=== PATIENT | male | born 1980 | race Caucasian/White ===

== ENCOUNTER 2023-11-02 13:47 | Outpatient (AMB) | payer OTHER, SELFPAY ==
[2023-11-02 13:50] VITALS: BP 130/86; PULSE 108; O2SAT 96; BMI 39.8
--- NOTE | 2023-11-02 13:50 | HO.NEPHOV_ITS ---
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 He is here for annual follow-up. Overall is doing very well. He has lost some weight. Blood pressure is better controlled. He has no new specific complaints today. Physical Exam Vital Signs: Last Vital Signs Pulse 108 H 11/02/23 13:50 BP 130/86 11/02/23 13:50 Pulse Ox 96 11/02/23 13:50 BMI result Body Mass Index 39.8 Const General: comfortable; No acute distress Orientation/consciousness: patient oriented x3 Eyes General: appearance normal, both eyes and all related structures Visual Mejía: normal visual mejía by confrontation Neck Neck: Yes supple and Yes no JVD Resp Effort & Inspection: normal respiratory effort and respiratory effort not decreased Auscultation: rhonchi Cardio Palpation: no palpable S3 and no palpable S4 Heart sounds: no rubs GI Inspection: Yes normal to inspection Palpation (GI): Soft to palpation Percussion: Yes normal to percussion Auscultation: normal bowel sounds General: Yes no CVA tenderness Back/Spine/Pelvis Back: no CVA tenderness Skin General skin exam: no petechiae and no purpura Neuro General: patient oriented x3 and no focal motor deficits Extrem General: No clubbing and No edema Results Reviewed Results Reviewed: Labs Nephrology Results: No Data to Display Assessment & Plan Assessment & Plan (1) HTN (hypertension): Code(s): I10 - Essential (primary) hypertension Category: Medical Plan 43-year-old man with a history of obesity and hypertension. Currently blood pressure is well controlled. We discussed importance of low-sodium diet. He should continue to lose some weight. I have not made any changes in his medications. As he loses weight we might be able to lower his antihypertensive medications. Encouraged him to avoid sugary drinks including mountain dew. Orders: Orders Basic Metabolic Panel 1 Year I10 - Essential (primary) hypertension Coding Level of Care Code Est Pt Level 3 (83993) Diagnoses HTN (hypertension) I10
== END 2023-11-02 14:00 | disposition home or self-care (01) ==
PROVIDERS: PCP Internal Medicine; Visit Provider Internal Medicine Hypertension Specialist
DX: I10 Essential (primary) hypertension (principal)
CPT/HCPCS: 99213

== ENCOUNTER → 2023-11-02 13:47 | Outpatient (BNVA) | payer OTHER, SELFPAY | PROVIDERS: PCP Internal Medicine; Visit Provider Internal Medicine Hypertension Specialist ==

== ENCOUNTER 2024-11-14 11:44 | Outpatient (AMB) | payer OTHER, SELFPAY ==
[2024-11-14 11:43] VITALS: BP 112/76; PULSE 106; O2SAT 96; BMI 36.4
--- NOTE | 2024-11-14 11:43 | HO.NEPHOV_ITS ---
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 Accompanied by: Self / Same As Patient Allergies cefuroxime (From Ceftin) Allergy (Unknown, Verified 11/14/24 11:46) Unknown doxycycline Allergy (Unknown, Verified 11/14/24 11:46) Unknown metoclopramide (From Reglan) Allergy (Unknown, Verified 11/14/24 11:46) Unknown Medication List - Last Reconciled 11/14/24 by Kale Turk MD albuterol sulfate 90 mcg/actuation 2 puffs inhalation Q6H amlodipine 10 mg PO DAILY ascorbic acid (vitamin C) ER 500 mg PO DAILY atorvastatin 10 mg PO DAILY cholecalciferol (vitamin D3) 125 mcg PO DAILY hydrochlorothiazide 25 mg PO QAM ipratropium bromide 18 mcg/actuation 2 puffs inhalation Q6H metformin 1,000 mg PO BID mometasone 100 mcg/actuation (Asmanex HFA) 2 puffs inhalation BID olmesartan 40 mg PO DAILY omeprazole 40 mg PO QAM semaglutide (Ozempic) mg subcut QWEEK zolpidem 10 mg PO BEDTIME PRN HPI Comments Details: Kel is a 43-year-old man with a history of obesity and hypertension. He is here for annual follow-up. Overall is doing very well. He has lost some weight. Blood pressure is better controlled. He has no new specific complaints today. 11/14/24 On ozempic Lost about 60 lbs so far Underwent ABPM 4 months ago and HCTZ 25 mg was added BP well controlled. Occasional lightheadedness when he bends down Physical Exam Vital Signs: BMI result Body Mass Index 36.4 Const General: comfortable; No acute distress Orientation/consciousness: patient oriented x3 Eyes General: appearance normal, both eyes and all related structures Visual Lanza: normal visual lanza by confrontation Neck Neck: Yes supple and Yes no JVD Resp Effort & Inspection: normal respiratory effort and respiratory effort not decreased Cardio Palpation: no palpable S3 and no palpable S4 Heart sounds: no rubs GI Inspection: Yes normal to inspection Palpation (GI): Soft to palpation Percussion: Yes normal to percussion Auscultation: normal bowel sounds General: Yes no CVA tenderness Back/Spine/Pelvis Back: no CVA tenderness Skin General skin exam: no petechiae and no purpura Neuro General: patient oriented x3 and no focal motor deficits Extrem General: No clubbing and No edema Assessment & Plan Assessment & Plan (1) HTN (hypertension): Code(s): I10 - Essential (primary) hypertension Category: Medical Plan 43-year-old man with a history of obesity and hypertension. Currently blood pressure is well controlled. We discussed importance of low-sodium diet. He should continue to lose some weight. I have not made any changes in his medications. As he loses weight we might be able to lower his antihypertensive medications. Encouraged him to avoid sugary drinks including mountain dew. 11/14/24 BP is well controlled with weight loss With ongoing weight loss, i except BP to drop further Would decrease HCTZ to 12.5 mg QD Watch BP at home and gradually taper antihypertensives Coding Level of Care Code Est Pt Level 4 (31669) Diagnoses HTN (hypertension) I10
--- OUTSIDE RECORDS SUMMARY | 2024-11-14 12:18 | XMS_ITS | Clinical Summary ---
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 Name Role Phone Jose Eduardo Lazo MD Primary Care Provider + [phone] Allergies Active Allergy Reactions Criticality Noted Date Comments Cefuroxime Other (see comments) 07/20/2021 Doxycycline Other (see comments) 07/20/2021 Metoclopramide Other (see comments) 07/20/2021 Medications zolpidem (AMBIEN) 10 MG tablet Comments: Patient Notes: take 1 tablet by mouth once day Duration: 30 Active omeprazole (PriLOSEC) [address] capsule Comments: Patient Notes: TAKE 1 CAPSULE BY MOUTH ONCE A DAY Duration: 30 Active Mometasone Furoate (Asmanex HFA) 100 MCG/ACT aerosol Take 220 mcg by mouth if needed Active cholecalcifero l (VITAMIN D-3) 25 MCG (1000 UT) capsule Comments: Patient Notes: TAKE 1 CAPSULE BY MOUTH ONCE A DAY Duration: 30 Active atorvastatin (LIPITOR) 10 MG tablet Comments: Patient Notes: TAKE 1 TABLET BY MOUTH ONCE DAILY Duration: 90 Active albuterol HFA (PROVENTIL HFA;VENTOLIN HFA) 108 (90 Base) MCG/ACT inhaler Inhale 2 puffs 3 (three) times a day Activ e metFORMIN (GLUCOPHAGE) 500 MG tablet Take 500 mg by mouth in the morning and 500 mg in the evening. 07/15/19 22 Active olmesartan (BENICAR) 40 MG tablet Take 40 mg by mouth 1 (one) time each day 06/12/19 22 Active amLODIPine (NORVASC) 5 MG tablet Take 1 tablet (5 mg total) by mouth 1 (one) time each day 30 tablet 11 08/19/19 22 Active Additional Information Patient taking differently: 10 mgOral Daily, Reported on 08/24/2022 Ozempic, 0.25 or 0.5 MG/DOSE, 2 MG/1.5ML solution pen-injector 0.25 mg by Subconjunctival route per week 08/13/19 22 Active Active Problems Problem Noted Date Diagnosed Date Hypertensive disorder 07/20/2021 Obstructive sleep apnea syndrome 07/20/2021 Family History Medical History Relation Comments Hypertension Father Relation Status Comments Father Unknown Mother Unknown Social History Tobacco Use Types Packs/Day Years Used Date Smoking Tobacco: Never Smokeless Tobacco: Never Tobacco Cessation:Counseling Given: Not Answered Alcohol Use Standard Drinks/Week Comments No 0 (1 standard drink = 0.6 oz pur e alcohol) Sex and Gender Information Value Date Recorded Sex Assigned at Not on file Legal Sex Male 4:49 PM EST Gender Identity Not on file Sexual Orientation Not on file Last Filed Vital Signs Vital Sign Reading Time Taken Comments Blood Pressure 141/80 08/24/2022 3:31 PM EDT Pulse 98 08/24/2022 3:31 PM EDT Temperature - - Respiratory Rate - - Oxygen Saturation 98% 08/24/2022 3:31 PM EDT Inhaled Oxygen Concentration - - Weight 132 kg (292 lb) 08/24/2022 3:31 PM EDT Height - - Body Mass Index - - Plan of Treatment Health Maintenance Due Date Last Done Comments Hepatitis B Vaccine (1 of 3 - 19+ 3-dose series) 06/27 Pneumococcal Vaccine: Peds ( 0 to 5 Years) and At-Risk Patients (6 to 49 Years) (1 of 2 - PCV) 1997 Influenza Vaccine (#1) [address] [place] [id number] [employer] Care Teams Loft Worker Relationship Specialty Start Date End Date Jose Eduardo aLzo MD [address] [place] [address] PCP - General Internal Medicine 07/22/21
--- OUTSIDE RECORDS SUMMARY | 2024-11-14 12:18 | XMS_ITS | Clinical Summary ---
Author Organization [facility] Address [address] [place] [address] Phone Care Team Providers Care Radio Electrician Name Role Phone Jose Eduardo Lazo MD Primary Care Provider + [phone] Allergies Active Allergy Reactions Criticality Noted Date Comments Cefuroxime Axetil 04/15/2024 Doxycycline 04/15/2024 Metoclopramide Hcl 04/15/2024 Medications albuterol HFA (PROAIR HFA ; PROVENTIL HFA ; VENTOLIN HFA) 90 mcg/actuation inhaler Inhale 2 puffs by mouth every 4 (four) hours if needed. Active ipratropium HFA (ATROVENT HFA) 17 mcg/actuation inhaler Inhale 2 puffs by mouth. Active omeprazole (PriLOSEC) [address] capsule Comments: Patient Notes: TAKE 1 CAPSULE BY MOUTH ONCE A DAY Duration: 30 Active mometasone HFA (Asmanex HFA) 100 mcg/actuation HFA aerosol inhaler inhaler Take 220 mcg by mouth. Active metFORMIN (GLUCOPHAGE) 500 mg tablet Take 1 tablet (500 mg total) by mouth. 07/15/19 22 Active atorvastatin (LIPITOR) 10 mg tablet Take 1 tablet (10 mg total) by mouth at bedtime. Active olmesartan (BENICAR) 40 mg tablet Take 1 tablet (40 mg total) by mouth 1 (one) time each day. 06/12/19 22 Active zolpidem (AMBIEN) 10 mg tablet Comments: Patient Notes: take 1 tablet by mouth once day Duration: 30 Active semaglutide (Ozempic) 0.25 mg or 0.5 mg(2 mg/1.5 mL) injection pen 0.25 mg by subconjunctival route once a week. 08/13/19 Active amLODIPine (NORVASC) 5 mg tablet Take 1 tablet (5 mg total) by mouth 1 (one) time each day. 08/19/19 22 Active cholecalcifero l (VITAMIN D-3) 25 mcg (1,000 unit) capsule Take 2 capsules (2,000 Units total) by mouth 1 (one) time each day. Active vitamin E, dl,tocopheryl acet, (vitamin E, dl, acetate,) 180 mg (400 unit) capsule Take 1 capsule (400 Units total) by mouth 1 (one) time each day. Active cromolyn (INTAL) 20 mg/2 mL nebulizer solution Take 2 mL (20 mg total) by nebulization 3 (three) times a day. Active hydroCHLOROthi azide (HYDRODIURIL) 25 mg tablet Take 1 tablet (25 mg total) by mouth 1 (one) time each day. Active fluticasone-sa lmeterol (Wixela Inhub) 250-50 mcg/dose diskus inhaler Inhale 1 puff by mouth 2 (two) times a day. Rinse mouth with water after use to reduce aftertaste and incidence of candidiasis. Do not swallow. 60 each 09/20/19 026 Active Encounters Date Type Department Care Team Description 10/31/2024 1:28 PM EDT - 10/31/2024 11:59 PM EDT Hospital Encounter [facility] Pulmonary [address] [place] [address] Moderate persistent asthma, unspecified whether complicated; Bronchiectasis without complication ([facility] V24, [facility] V28) Discharge Disposition: Home or Self Care 09/19/2024 11:00 AM EDT Consult Pulmonolgy - [facility] [address] [place] [address] Amelia Soto MD Moderate persistent asthma, unspecified whether complicated (Primary Dx); Bronchiectasis without complication ([facility] V24, [facility] V28); CHANTAL (obstructive sleep apnea) from Last 3 Months Surgical History Surgery Date Site/Laterality Comments ESOPHAGOGASTRODUODENOSCOPY Medical History Medical History Date Comments Asthma Hypertension Hyperlipidemia Diabetes mellitus (CMS/HCC V24, CMS/HCC V28) Sleep apnea Family History Medical History Relation Name Comments Liver cancer Father Relation Name Status Comments Father Social History Tobacco Use Types Packs/Day Years Used Date Smoking Tobacco: Never Smokeless Tobacco: Never Alcohol Use Standard Drinks/Week Comments No 0 (1 standard drink = 0.6 oz pur e alcohol) Interpersonal Safety Answer Date Record ed Physical Abuse 04/15/2024 Verbal Abuse 04/15/2024 Sex and Gender Information Value Date Recorded Sex Assigned at Not on file Legal Sex Male 9:44 AM EST Gender Identity Not on file Sexual Orientation Not on file Obstetrics History Last Filed Vital Signs Vital Sign Reading Time Taken Comments Blood Pressure 114/76 09/19/2024 11:17 AM EDT Pulse 104 09/19/2024 11:17 AM EDT Temperature 36.6 C (97.8 F) 09/19/2024 11:17 AM EDT Respiratory Rate 20 09/19/2024 11:17 AM EDT Oxygen Saturation 97% 09/19/2024 11:17 AM EDT Inhaled Oxygen Concentration - - Weight 126 kg (278 lb 6.4 oz) 09/19/2024 11:17 A M EDT Height 188 cm (6' 2 ) 09/19/2024 11:17 AM EDT Body Mass Index 35.74 09/19/2024 11:17 AM EDT Plan of Treatment Upcoming Encounters Date Type Department Care Team (Late st Contact Info) Description 02/13/2025 11:45 AM EST Office Visit Pulmonolgy - [facility] [address] [place] [id number] Amelia Soto MD [address] [place] [address] Health Maintenance Due Date Last Done Comments Hepatitis B Vaccines (1 of 3 - 19+ 3-dose series) 1997 Pneumococcal Vaccine: Pediatrics (0 to 5 Years) and At-Risk Patients (6 to 49 Years) (1 of 2 - PCV) 1997 Cholesterol Screening (Lipid Panel) 03/13/2022 HIV Screening 03/13/2022 Hepatitis C Screening 03/13/2022 Social Influencers of Health Screening 03/13/2022 COVID-19 Vaccine (3 - 2023-2 5 season) 2023 08/28/2020, 07/31/2020 Depression Screening 04/10/2024 Hypertension/CHF/CAD Annual BMP Blood Test 04/15/2024 08/24/2022 Influenza Vaccine (#1) 2024 , 01/17/2023 DTaP,Tdap,and Td Vaccines (2 - Td or Tdap) 01/17/2033 01/17/2023 Colorectal Cancer Screening: Colonoscopy 04/15/2034 04/15/2024 HIB Vaccines Aged Out No longer eligi ble based on patient's age to complete this topic HPV Vaccines Aged Out No longer eligi ble based on patient's age to complete this topic Hepatitis A Vaccines Aged Out No long er eligible based on patient's age to complete this topic IPV Vaccines Aged Out No longer eligi ble based on patient's age to complete this topic MMR Vaccines Aged Out No longer eligi ble based on patient's age to complete this topic Meningococcal ACWY Vaccine Aged Out N o longer eligible based on patient's age to complete this topic Meningococcal B Vaccine Aged Out No l onger eligible based on patient's age to complete this topic RSV Immunization Patients Under 20 months Aged Out No longer eligible b ased on patient's age to complete this topic Varicella Vaccines Aged Out No longer eligible based on patient's age to complete this topic Procedures Procedure Name Priority Date/Time Associated Diagnosis Comments HC SPIROMETRY BRONCHODILATION RESPONSIVENESS PRE/POST BRONCHODILATOR ADMINISTRATION Routine 10/31/2024 2:18 PM EDT Moderate persistent asthma, unspecified whether complicated Bronchiectasis without complication (CMS/[facility] V24, CMS/[facility] V28) COLONOSCOPY Routine 04/15/2024 9:09 AM EST Family history of colon polyps, unspecified Family history of colon cancer from Last 3 Months or Most Recently Relevant to Health Maintenance Results * Pulmonary function testing: Carbon Monoxide Diffusing Capacity, Spirometry with Bronchodilator, Vital Capacity Test, Flow Volume Loop (10/31/2024 2:18 PM EDT) Narrative Sahara Cronin MD - 11/01/2024 2:55 PM EDT Table formatting from the original result was not included. Images from the original result were not included. [facility] [address] [place] [address] Pulmonary Functions Report Date of service: 10/31/24 Patient Name: Kel Hurtado Date of : Age: 44 y.o. Gender: male Ordering Provider: Amelia Soto MD Diagnosis listed on Order: Bronchiectasis without complication ([facility] V24, [facility] V28), Moderate persistent asthma, unspecified whether complicated Reason for Exam: Order Questions Answers Reason for Exam: asthma Which PFTs would you like to perform? Carbon Monoxide Diffusing Capacity,Spirometry with Bronchodilator,Vital Capacity Test,Flow Volume Loop Pulmonary function test interpretation. Spirometry done reveals FEV1 of 3.20 which is 78% of the predicted value, FVC is 4.35 which is 84% of the predicted value, FEV1 to FVC ratio is 92% of the predicted value, there is no bronchodilator response. Flow volume is consistent with obstructive pattern. Static lung volumes including total lung capacity is within normal limit, there is mild air trapping. Diffusion lung capacity is elevated after correction for alveolar volume. This study is consistent with moderate mild obstructive lung disease without bronchodilator response with normal diffusion lung capacity suggestive of overlap syndrome however clinical correlation is recommended. us Amelia Soto MD PFT ORDERABLES Final Result * COLONOSCOPY Anesthesia - MAC; [facility] END[facility]COPY (04/15/2024 9:09 AM EST) Anatomical Region Laterality Modality Other 04/15/2024 8:26 AM EST Impressions 04/15/2024 9:01 AM EST - Two 6 to 8 mm polyps at the splenic flexure, removed with a cold snare. Resected and retrieved. - Two 8 to 9 mm polyps in the descending colon, removed with a cold snare. Resected and retrieved. - One 10 mm polyp in the distal rectum, removed with a cold snare. Resected and retrieved. Clip (MR conditional) was placed. Clip sales order administrator: REEL Qualified. - The examination was otherwise normal on direct and retroflexion views. Recommendation: - Await pathology results. - Repeat colonoscopy in 3 years for surveillance. Narrative 04/15/2024 9:01 AM [facility] Patient Name: Kel Hurtado Procedure Date: 04/15/2024 8:26 AM Date of : 1980 Age: 43 Room: ROOM 14 Gender: Male Note Status: Finalized Attending MD: Davis Mejia MD, Procedure Date No Time: 04/15/2024 Procedure: Colonoscopy Indications: Screening for colorectal malignant neoplasm Providers: Davis Mejia MD Referring MD: Davis Mejia MD Medicines: Propofol per Anesthesia Complications: No immediate complications. Estimated Blood Loss: Estimated blood loss: none. Estimated blood loss was minimal. Procedure: Pre-Anesthesia Assessment: - ASA Grade Assessment: III - A patient with severe systemic disease. After I obtained informed consent, the scope was passed under direct vision. Throughout the procedure, the patient's blood pressure, pulse, and oxygen saturations were monitored continuously.The Olympus Colonoscope was introduced through the anus and advanced to the cecum, identified by appendiceal orifice and ileocecal valve. The colonoscopy was performed without difficulty. The patient tolerated the procedure well. The quality of the bowel preparation was good. Findings: The perianal and digital rectal examinations were normal. Two sessile polyps were found in the splenic flexure. The polyps were 6 to 8 mm in size. These polyps were removed with a cold snare. Resection and retrieval were complete. Two sessile polyps were found in the descending colon. The polyps were 8 to 9 mm in size. These polyps were removed with a cold snare. Resection and retrieval were complete. A 10 mm polyp was found in the distal rectum. The polyp was semi-pedunculated. The polyp was removed with a cold snare. Resection and retrieval were complete. To prevent bleeding after the polypectomy, one hemostatic clip was successfully placed (MR conditional). Clip sales order administrator: REEL Qualified. There was no bleeding at the end of the procedure. The exam was otherwise without abnormality on direct and retroflexion views. Procedure Code(s): --- Professional --- 30724, Colonoscopy, flexible; with removal of tumor(s), polyp(s), or other lesion(s) by snare technique Diagnosis Code(s): --- Professional --- Z12.11, Encounter for screening for malignant neoplasm of colon D12.3, Benign neoplasm of transverse colon (hepatic flexure or splenic flexure) D12.4, Benign neoplasm of descending colon D12.8, Benign neoplasm of rectum CPT copyright 2020 [employer]. All rights reserved. The codes documented in this report are preliminary and upon bar steward review may be revised to meet current compliance requirements. Davis Mejia MD 04/15/2024 9:01:32 AM This report has been signed electronically.Davis Mejia MD Number of Addenda: 0 Note Initiated On: 04/15/2024 8:26 AM Scope In: Scope Out: Endoscopy Department at [facility] - [address] [place] [id number] Procedure Note Davis Mejia MD - 04/15/2024 [facility] Patient Name: Kel Hurtado Procedure Date: 04/15/2024 8:26 AM Date of : 1980 Age: 43 Room: ROOM 14 Gender: Male Note Status: Finalized Attending MD: Davis Mejia MD, Procedure Date No Time: 04/15/2024 Procedure: Colonoscopy Indications: Screening for colorectal malignant neoplasm Providers: Davis Mejia MD Referring MD: Davis Mejia MD Medicines: Propofol per Anesthesia Complications: No immediate complications. Estimated Blood Loss: Estimated blood loss: none. Estimated blood loss was minimal. Procedure: Pre-Anesthesia Assessment: - ASA Grade Assessment: III - A patient with severe systemic disease. After I obtained informed consent, the scope was passed under direct vision. Throughout theprocedure, the patient's blood pressure, pulse, and oxygen saturations were monitored continuously.The Olympus Colonoscope was introduced through the anus and advanced to the cecum, identified by appendiceal orifice and ileocecal valve. The colonoscopy was performed without difficulty. The patient tolerated the procedure well. The quality of the bowel preparation was good. Findings: The perianal and digital rectal examinations were normal. Two sessile polyps were found in the splenicflexure. The polyps were 6 to 8 mm in size. These polypswere removed with a cold snare. Resection and retrieval were complete. Two sessile polyps were found in the descendingcolon. The polyps were 8 to 9 mm in size. These polypswere removed with a cold snare. Resection and retrieval were complete. A 10 mm polyp was found in the distal rectum. The polyp was semi-pedunculated. The polyp was removed with a cold snare. Resection and retrieval were complete. To prevent bleeding after thepolypectomy, one hemostatic clip was successfully placed (MR conditional). Clip sales order administrator: REEL Qualified. There was no bleeding at the end of theprocedure. The exam was otherwise without abnormality ondirect and retroflexion views. Procedure Code(s): --- Professional --- 81702, Colonoscopy, flexible; with removal of tumor(s), polyp(s), or other lesion(s) by snare technique Diagnosis Code(s): --- Professional --- Z12.11, Encounter for screening for malignantneoplasm of colon D12.3, Benign neoplasm of transverse colon (hepatic flexure or splenic flexure) D12.4, Benign neoplasm of descending colon D12.8, Benign neoplasm of rectum CPT copyright 2020 [employer]. All rights reserved. The codes documented in this report are preliminary and upon bar steward reviewmay be revised to meet current compliance requirements. Davis Mejia MD 04/15/2024 9:01:32 AM This report has been signed electronically.Davis Mejia MD Number of Addenda: 0 Note Initiated On: 04/15/2024 8:26 AM Scope In: Scope Out: Endoscopy Department at [facility] - [address] [place] [phone] IMPRESSION: - Two 6 to 8 mm polyps at the splenic flexure, removed with a cold snare. Resected and retrieved. - Two 8 to 9 mm polyps in the descending colon, removed with a cold snare. Resected andretrieved. - One 10 mm polyp in the distal rectum, removedwith a cold snare. Resected and retrieved. Clip (MR conditional) was placed. Clip sales order administrator: REEL Qualified. - The examination was otherwise normal on directand retroflexion views. Recommendation: - Await pathology results. - Repeat colonoscopy in 3 years for surveillance. us Davis Mejia MD GI~PROCEDURE ORDERABLES Fin al Result from Last 3 Months or Most Recently Relevant to Health Maintenance Insurance [employer] Care Teams Radio Electrician Relationship Specialty Start Date End Date Jose Eduardo Lazo MD [address] [place] [id number] PCP - General Internal Medicine 04/11/24
== END 2024-11-14 11:58 | disposition home or self-care (01) ==
LOC: HO.HKA 11:44
PROVIDERS: PCP Internal Medicine; Visit Provider Internal Medicine Hypertension Specialist
DX: I10 Essential (primary) hypertension (principal)
CPT/HCPCS: 99214